=== PATIENT | female | born 1990 | race Caucasian/White ===

== ENCOUNTER 2018-08-31 13:30 | Inpatient (IN) | payer OTHER ==
[~2018-08-31] VITALS: Ht 149.9 cm; Wt 61.2 kg
[2018-08-31] MEDS ORDERED: PRENATAL TABLE1 EAC1 PO (20:08)
== END 2018-09-03 15:11 | disposition home or self-care (01) | DRG 819 ==
LOC: LDR 13:30 → OB/GYN 09-02 10:29 → O/R 09-02 14:35 → LDR 09-02 14:56 → OB/GYN 09-02 17:00
PROVIDERS: Urology; ADMIT Specialist
PROC: BW40ZZZ Ultrasonography of Abdomen (ICD-10-PCS; 2018-08-31)
PROC: BT4JZZZ Ultrasonography of Kidneys and Bladder (ICD-10-PCS; 2018-08-31)
PROC: 4A1HXCZ Monitoring of Products of Conception, Cardiac Rate, External Approach (ICD-10-PCS; 2018-08-31)
PROC: BY4CZZZ Ultrasonography of Second Trimester, Single Fetus (ICD-10-PCS; 2018-08-31)
PROC: BT1DZZZ Fluoroscopy of Right Kidney, Ureter and Bladder (ICD-10-PCS; 2018-09-01)
PROC: 0T768DZ Dilation of Right Ureter with Intraluminal Device, Via Natural or Artificial Opening Endoscopic (ICD-10-PCS; principal; 2018-09-01 17:30)
DX: O99.612 Diseases of the digestive system complicating pregnancy, second trimester (principal); Z34.82 Encounter for supervision of other normal pregnancy, second trimester; N20.0 Calculus of kidney; R74.0 Nonspecific elevation of levels of transaminase and lactic acid dehydrogenase [LDH]

== ENCOUNTER 2018-12-02 18:56 | Inpatient (IN) | payer OTHER ==
[~2018-12-02] VITALS: Ht 147.3 cm; Wt 59.0 kg
[~2018-12-02 18:56] MED LIST: PRENATAL TABLE1 EAC1 PO
== END 2018-12-05 11:15 | DRG 788 ==
LOC: OBS/DEL 18:56 → LDR 19:36 → OB/GYN 19:36
PROVIDERS: ADMIT Specialist
PROC: 4A0HXFZ Measurement of Products of Conception, Cardiac Rhythm, External Approach (ICD-10-PCS; 2018-12-02)
PROC: 10D00Z1 Extraction of Products of Conception, Low, Open Approach (ICD-10-PCS; principal; 2018-12-02 20:00)
DX: O82 Encounter for cesarean delivery without indication (principal); Z3A.36 36 weeks gestation of pregnancy; Z37.0 Single live birth; E87.6 Hypokalemia

== ENCOUNTER 2019-04-24 13:24 | Outpatient (CLI) | payer OTHER | END 2019-04-24 13:25 | disposition home or self-care (01) | LOC: RAD 13:24 | DX: N20.1 Calculus of ureter (principal) ==

== ENCOUNTER → 2019-04-24 13:43 | Outpatient (CLI) | payer OTHER | END | disposition home or self-care (01) | LOC: LAB 13:43 | DX: N20.1 Calculus of ureter (principal) ==

== ENCOUNTER → 2019-05-05 08:45 | Outpatient (CLI) | payer OTHER | END | disposition home or self-care (01) | LOC: LAB 08:45 | DX: N20.1 Calculus of ureter (principal); Z01.811 Encounter for preprocedural respiratory examination ==

== ENCOUNTER → 2019-05-05 | Outpatient (CLI) | payer OTHER | END | disposition home or self-care (01) | LOC: TOM 09:26 | DX: N39.0 Urinary tract infection, site not specified (principal); N20.1 Calculus of ureter ==

== ENCOUNTER 2019-05-16 16:43 | Outpatient (CLI) | payer OTHER | END 2019-05-16 16:54 | disposition home or self-care (01) | LOC: LAB 16:43 | DX: N30.00 Acute cystitis without hematuria (principal) ==

== ENCOUNTER 2019-05-19 17:20 | Outpatient (CLI) | payer OTHER | END 2019-05-19 18:38 | disposition home or self-care (01) | LOC: LAB 17:20 | DX: N30.00 Acute cystitis without hematuria (principal) ==

== ENCOUNTER 2019-05-22 11:20 | Inpatient (IN) | payer OTHER ==
[~2019-05-22] VITALS: Ht 149.9 cm; Wt 58.1 kg
[2019-05-24] MEDS ORDERED: LEVAQUIN500 MG PO (14:39)
== END 2019-05-26 15:23 | disposition home or self-care (01) | DRG 660 ==
LOC: O/R 05-24 09:22 → SURG 05-24 09:22 → SURH 05-24 09:45 → SURG 05-24 14:54
PROVIDERS: ADMIT Urology
PROC: 0TC08ZZ Extirpation of Matter from Right Kidney, Via Natural or Artificial Opening Endoscopic (ICD-10-PCS; 2019-05-24)
PROC: 0T768DZ Dilation of Right Ureter with Intraluminal Device, Via Natural or Artificial Opening Endoscopic (ICD-10-PCS; 2019-05-24)
PROC: 0TF68ZZ Fragmentation in Right Ureter, Via Natural or Artificial Opening Endoscopic (ICD-10-PCS; 2019-05-24)
PROC: 0TFB8ZZ Fragmentation in Bladder, Via Natural or Artificial Opening Endoscopic (ICD-10-PCS; 2019-05-24)
PROC: BT1DZZZ Fluoroscopy of Right Kidney, Ureter and Bladder (ICD-10-PCS; 2019-05-24)
PROC: 0TP98DZ Removal of Intraluminal Device from Ureter, Via Natural or Artificial Opening Endoscopic (ICD-10-PCS; 2019-05-24)
PROC: 0TP98DZ Removal of Intraluminal Device from Ureter, Via Natural or Artificial Opening Endoscopic (ICD-10-PCS; principal; 2019-05-24 09:45)
DX: T83.091A Other mechanical complication of indwelling urethral catheter, initial encounter (principal); N20.1 Calculus of ureter; N21.0 Calculus in bladder; N21.1 Calculus in urethra; N20.0 Calculus of kidney

== ENCOUNTER → 2019-05-30 09:13 | Outpatient (CLI) | payer OTHER | END | disposition home or self-care (01) | LOC: LAB 09:13 | DX: N20.0 Calculus of kidney (principal) ==

== ENCOUNTER → 2019-05-30 | Outpatient (CLI) | payer OTHER ==
[~2019-05-30] MED LIST changes: +LEVAQUIN500 MG PO
== END | disposition home or self-care (01) ==
LOC: RAD 09:54
DX: N20.1 Calculus of ureter (principal)